=== PATIENT | female | born 1995 | race Caucasian/White ===

== ENCOUNTER 2022-08-27 11:01 | Outpatient (CLI) | payer BC, SELFPAY ==
--- NOTE | ~2022-08-27 | US_ITS ---
US breast LT limited DATE: 08/27/2022 11:28 INDICATION: 1:00 left breast lump felt by referring physician. TECHNIQUE: Real-time imaging at 1:00 COMPARISON: None FINDINGS: No suspicious mass or shadowing, cyst or other significant sonographic finding is identifie d at 1:00. IMPRESSION: Negative Reviewed, dictated and finalized at Location [facility]. Reviewed, dictated and finalized at location A. IMPRESSION: Negative
== END 2022-08-27 11:02 | disposition home or self-care (01) ==
PROVIDERS: PCP Physician Assistant Medical; Visit Provider Obstetrics & Gynecology
DX: N63.21 Unspecified lump in the left breast, upper outer quadrant (principal)
CPT/HCPCS: 76642

== ENCOUNTER 2023-12-16 08:20 | Outpatient (CLI) | payer OTHER, SELFPAY ==
[2023-12-16 13:29] LABS: Hematocrit 40.4 % (37.0-47.0); Hemoglobin 13.1 g/dL (12.0-15.0); Immature Platelet Fraction Pct 17.1 % (0.9-11.2); Mean Corpuscular HGB Conc 32.4 g/dl (32-36); Mean Corpuscular Hemoglobin 29.6 pg (26-34); Mean Corpuscular Volume 91.2 fl (80-100); Mean Platelet Volume 11.8 fl (7.4-10.4); Red Blood Count 4.43 M/mm3 (4.2-5.4); White Blood Count 5.9 K/mm3 (4.5-10.0)
[2023-12-16 14:00] LABS: Band Neutrophils Percent 1 % (0-6); Eosinophils Absolute Manual 0.05 K/mm3 (0.02-0.50); Eosinophils Percent Manual 1 % (0-4); Lymphocytes Absolute Manual 1.23 K/mm3 (1.1-4.5); Lymphocytes Percent Manual 21 % (18-44); Monocytes Absolute Manual 0.11 K/mm3 (0.1-0.90); Monocytes Percent Manual 2 % (3-9); Neutrophils Absolute Manual 4.48 K/mm3 (1.7-7.2); Neutrophils Percent Manual 75 % (46-73); Total Cells Counted 100
[2023-12-16 14:01] LABS: Schistocytes None Seen
[2023-12-16 14:33] LABS: Hepatitis B Surface Antigen Negative (Negative)
[2023-12-16 15:28] LABS: HIV 1/2 Ab P24 Ag 2.03
[2023-12-16 15:30] LABS: HIVc Retest 2 2.09
[2023-12-16 15:34] LABS: HIV 1/2 Ab P24 Ag Result Reactive (Negative)
[2023-12-16 17:20] LABS: Rapid Plasma Reagin Non-Reactive (NonReactive)
[2023-12-18 16:34] LABS: Varicella IgG Antibody 3.86 S/CO
[2023-12-25 16:20] LABS: HIV 1 2 Ag Ab 4th Gen w Rflxs REPEATEDLY REACTIVE (NON-REACTIVE); HIV 1 Ab Chg Test Yes; HIV 1 Antibody NEGATIVE (NEGATIVE); HIV 2 Ab Chg Test Yes; HIV 2 Antibody NEGATIVE (NEGATIVE)
[2023-12-29 20:13] LABS: HIV-1 RNA, Qual Chg Test Yes; HIV-1 RNA, Qual TMA NOT DETECTED
== END 2023-12-16 08:21 | disposition home or self-care (01) ==
LOC: ANHGOSHLAB 08:21
PROVIDERS: PCP Physician Assistant Medical; Visit Provider Obstetrics & Gynecology
DX: N91.2 Amenorrhea, unspecified (principal)
CPT/HCPCS: 36415; 84702; 85025; 85055; 86592; 86644; 86701; 86702; 86703; 86747; 86762; 86787; 86850; 86900; 86901; 87086; 87340; 87389; G0432

== ENCOUNTER 2024-06-16 22:22 | Outpatient (RCR) | payer OTHER, SELFPAY ==
[2024-06-16 23:06] VITALS: BP 112/69; PULSE 89
--- NOTE | 2024-06-16 23:10 | PC.NURSE ---
2257- RN notified MD of patient arrival and patient complaints. RN notified MD of FHT tracing that is reactive with moderate variability and accelerations. RN also notified MD of the absence of contractions. RN notified MD of patient marking movement and that patient is feeling more movement and is reassured. RN notified MD of vital signs as well. MD gave orders to d/c patient with standard precautions and to have the patient follow up in the office.
--- NOTE | 2024-06-16 23:11 | PC.NURSE ---
2302-RN at bedside discussing d/c instructions with patient. Patient agrees with plan of care and is comfortable going home and has no questions at this time.
== END 2024-07-08 17:05 | disposition home or self-care (01) ==
LOC: ANHOBOP 22:22
PROVIDERS: Visit Provider Obstetrics & Gynecology
DX: O36.8190 Decreased fetal movements, unspecified trimester, not applicable or unspecified (principal); Z3A.00 Weeks of gestation of pregnancy not specified
CPT/HCPCS: 59025

== ENCOUNTER 2024-06-18 08:27 | Outpatient (CLI) | payer OTHER, SELFPAY ==
--- OUTSIDE RECORDS SUMMARY | 2024-06-18 08:33 | XMS_ITS | Clinical Summary ---
Author Organization [facility] Address [address] [place] [address] Phone Care Team Providers Care Hearing Aid Dispenser Name Role Phone Unavailable Primary Care Provider Unavailabl e Allergies No known active allergies Encounters Date Type Department Care Team Description 06/16/2024 External Device Data [facility]CTION Provider, Abstract 05/23/2024 External Device Data [facility] Provider, Abstract 05/22/2024 External Device Data [facility] Provider, Abstract 05/19/2024 External Device Data [facility] Provider, Abstract 04/28/2024 External Device Data [facility] Provider, Abstract 04/09/2024 External Device Data [facility] Provider, Abstract 04/08/2024 External Device Data [facility] Provider, Abstract 04/07/2024 External Device Data [facility] Provider, Abstract 03/24/2024 External Device Data [facility] Provider, Abstract from Last 3 Months Immunizations Immunization Administration Dates Next Due (ADACEL/BOOSTRIX)(10 YR UP) TDAP VACCINE, 0.5ML, IM 08/19/2023(Deferred: - pt refused. pt states she will get the shot at her pcp) Social History Tobacco Use Types Packs/Day Years Used Date Smoking Tobacco: Never Assessed Feeling Safe Answer Date Recorded Are you in a relationship wi th someone who hurts you emotionally and/or physically? No 08/19/2023 Comments Unknown Sex and Gender Information Value Date Recorded Sex Assigned at Not on file Legal Sex Female 6:24 PM CDT Gender Identity Not on file Sexual Orientation Not on file Last Filed Vital Signs Vital Sign Reading Time Taken Comments Blood Pressure 139/76 08/19/2023 7:00 PM CDT Pulse 66 08/19/2023 7:00 PM CDT Temperature 37.3 C (99.2 F) 08/19/2023 7:00 PM CDT Respiratory Rate 14 08/19/2023 7:00 PM CDT Oxygen Saturation 100% 08/19/2023 7:00 PM CDT Inhaled Oxygen Concentration - - Weight - - Height - - Body Mass Index - - Plan of Treatment Health Maintenance Due Date Last Done Comments DTAP/TDAP/TD VACCINES (1 - Tdap) 2014 HEPATITIS B VACCINES (1 of 3 - 19+ 3-dose series) 2014 CERVICAL CANCER SCREENING 02/21/2016 HPV/Cotest (21-29) 02/21/2016 PAP SMEAR 02/21/2016 PAP SMEAR 02/21/2016 INFLUENZA VACCINE (#1) 2023 HPV VACCINES Aged Out No longer eligi ble based on patient's age to complete this topic Insurance [employer] [facility] [id number]
--- OUTSIDE RECORDS SUMMARY | 2024-06-18 08:33 | XMS_ITS | Encounter Summary ---
Author Organization [facility] Address [address] [place] [address] Care Team Providers Care Assistant Brand Manager Name Role Phone Unavailable Primary Care Provider Unavailabl e Encounter Details Date Type Department Care Team (Late st Contact Info) Description 06/16/2024 External Device Data [facility] Provider, Abstract NO ADDRESS ON FILE Social History Tobacco Use Types Packs/Day Years [...] on file Sexual Orientation Not on file documented as of this encounter Plan of Treatment Not on file documented as of this encounter Visit Diagnoses Not on filedocumented in this encounter
[2024-06-18 10:36] LABS: INR 0.9; Prothrombin Time 12.9 Seconds (11.1-14.7)
[2024-06-18 10:37] LABS: Partial Thromboplastin Time 25.9 Seconds (22.3-36.8)
[2024-06-18 11:46] LABS: Alanine Aminotransferase 29 U/L (6-35); Albumin Level 3.6 g/dL (3.5-5.1); Alkaline Phosphatase 153 U/L (38-126); Anion Gap 9 mmol/L (4-12); Aspartate Amino Transferase 38 U/L (14-36); Bilirubin,Total 0.4 mg/dL (0.2-1.3); Blood Urea Nitrogen 8 mg/dL (7-17); Calcium 8.7 mg/dL (8.4-10.2); Carbon Dioxide 23 mmol/L (22-30); Chloride 104 mmol/L (98-107); Estimated Glomerular Filt Rate > 60; Glucose 92 mg/dL (65-110); Sodium 136 mmol/L (137-145)
[2024-06-23 16:58] LABS: Chenodeoxycholic Acid 1.4 umol/L (< OR = 3.9); Cholic Acid 2.9 umol/L (< OR = 2.8); Deoxycholic Acid 1.6 umol/L (< OR = 2.3); Total Bile Acids 5.9 umol/L (< OR = 8.3)
== END 2024-06-18 08:28 | disposition home or self-care (01) ==
LOC: ANHGOSHLAB 08:28
PROVIDERS: Visit Provider Obstetrics & Gynecology
DX: L29.9 Pruritus, unspecified (principal)
CPT/HCPCS: 36415; 80053; 82542; 85610; 85730

== ENCOUNTER 2024-06-23 15:54 | Inpatient (IN) | payer OTHER, SELFPAY ==
[2024-06-23] VITALS (12 sets, daily range): BP systolic 116–131; BP diastolic 71–93; PULSE 75–125; TEMP 37; BMI 32.7
--- NOTE | ~2024-06-23 | CT_ITS ---
CTA chest PE abdomen pel Ordering provider: Jayshree Williamson MD History: . elevated d-dimer . Comparison: None. Technique: CT angiogram chest was performed following timed intravenous injection of contrast. Thin s lice axial images and reformatted coronal images were obtained. Three dimensional reformatted images of the chest were also obtained using a [employer] workstation. Also, CT of the abdomen and pelvis was pe rformed with IV contrast. . Automated exposure control and iterative reconstruction technique were e mployed. The dose-length product was 1497.46 mGy-cm. 100 mL Omnipaque 350 was given IV. FINDINGS: CHEST: --PULMONARY ARTERIES: No pulmonary embolus. --VISUALIZED THORACIC INLET: Normal. --MEDIASTINUM: Aorta/coronary arteries: The thoracic aorta is normal. Heart/other: No cardiomegaly. Lymph nodes: No mediastinal or hilar adenopathy. --LUNGS: No pulmonary nodules or masses. No infiltrates or effusions. No pneumothorax. --MUSCULOSKELETAL: Bones: normal spine. Superficial soft tissues: The superficial soft tissues are normal. ABDOMEN/PELVIS: --MUSCULOSKELETAL: Superficial soft tissues: The superficial soft tissues are normal. Bones: Normal spine. --UPPER ABDOMINAL ORGANS: Liver: Normal. Gallbladder: Normal. Spleen: Normal. Stomach/duodenum: Normal. Pancreas: Normal. Adrenals: Normal. Kidneys: Hydronephrotic changes in both kidneys more on the right side with dilated ureters. --PELVIC ORGANS: The bladder is normal. No bladder stones. Uterus: Grossly enlarged. Clinical correlation for recent labour is advised. --BOWEL AND MESENTERY: Colon: No evidence of diverticulitis. No evidence of appendicitis. Small Bowel: Slight rotation in the area of the mesenteric root is noted but no definite ischemia see n. No obstruction. Peritoneum/mesentery: No free air or free fluid. No mesenteric lymphadenopathy. --RETROPERITONEUM: Normal aorta. No retroperitoneal lymphadenopathy. IMPRESSION: CHEST: 1. No evidence of pulmonary embolism. 2. No acute cardiopulmonary pathology. ABDOMEN/PELVIS: 1. Bilateral hydronephrotic changes more on the right side with dilated ureters. 2. Grossly enlarged uterus most likely status post labour. Clinical correlation advised. Reviewed, dictated and finalized at location A. IMPRESSION: CHEST: 1. No evidence of pulmonary embolism. 2. No acute cardiopulmonary pathology. ABDOMEN/PELVIS: 1. Bilateral hydronephrotic changes more on the right side with dilated ureter s. 2. Grossly enlarged uterus most likely status post labour. Clinical correlatio n advised.
--- OUTSIDE RECORDS SUMMARY | 2024-06-23 16:57 | XMS_ITS | Clinical Summary ---
Author Organization [facility] Address [address] [place] [address] Phone Care Team Providers Care Prefitter Doors Name Role Phone Unavailable Primary Care Provider [...] patient's age to complete this topic Insurance [employer] [facility] [id number] Member Subscriber Plan / Payer (Ef fective 2023-Present) Name:LILO STEEL Relation to Subscriber:Spouse Name:PRINCE HONG Date of :1993 (Home) Address: [address] [place] [address] Payer ID:[id number] (NAIC) Type:O Address: [facility] [id number] [place] [id number]
--- NOTE | 2024-06-23 17:15 | LDADM ---
This patient, Lilo Hong, was admitted to Labor/Delivery/Recovery 103 on 06/23/24 at 15:54. Plans for labor, pain management and were discussed with patient. Patient/family oriented to hospital policies and general routines including ID bracelet, bed and alarms, visiting hours, pain management, procedures, bathroom and other care routines, personal items, smoking policy, room service/diet and guest tray routines, security routines, and visiting hours. Patient/Family are encouraged to report perceived risks to care and to ask questions if they do not understand what they are told or what they should do. See OBIX for further documentation.
[2024-06-23 17:16] LABS: Basophils Percent Auto 0.2 % (0.2-1.2); Eosinophils Absolute Auto 0.1 K/mm3 (0-0.3); Eosinophils Percent Auto 0.6 % (0-4.4); Hematocrit 38.1 % (37.0-47.0); Hemoglobin 12.2 g/dL (12.0-15.0); Immature Granulocyte Absolute 0.05 K/mm3 (0.00-0.031); Immature Granulocyte Percent A 0.5 % (0-0.5); Lymphocytes Absolute Auto 1.97 K/mm3 (0.9-3.2); Mean Corpuscular Hemoglobin 29.3 pg (26-34); Mean Corpuscular Volume 91.6 fl (80-100); Mean Platelet Volume 11.3 fl (7.4-10.4); Monocytes Absolute Auto 0.7 K/mm3 (0.1-0.6); Monocytes Percent Auto 6.3 % (2.6-8.5); Neutrophils Absolute Auto 7.6 K/mm3 (1.3-6.7); Neutrophils Percent Auto 73.4 % (45.5-73.1); Platelet Count Result 178 k/mm3 (150-375); Red Blood Count 4.16 M/mm3 (4.2-5.4); Red Cell Distribution Width 13.9 % (11.5-14.5); White Blood Count 10.4 K/mm3 (4.5-10.0)
[2024-06-23 17:25] LABS: Alanine Aminotransferase 23 U/L (6-35); Albumin Level 3.8 g/dL (3.5-5.1); Alkaline Phosphatase 142 U/L (38-126); Anion Gap 8 mmol/L (4-12); Aspartate Amino Transferase 24 U/L (14-36); Bilirubin,Total 0.2 mg/dL (0.2-1.3); Blood Urea Nitrogen 9 mg/dL (7-17); Calcium 8.4 mg/dL (8.4-10.2); Carbon Dioxide 22 mmol/L (22-30); Chloride 105 mmol/L (98-107); Estimated Glomerular Filt Rate > 60; Glucose 93 mg/dL (65-110); Potassium 3.7 mmol/L (3.4-5.0); Sodium 135 mmol/L (137-145)
[2024-06-23] MEDS: DINOPROSTONE 10 MG VAG INSERT VAGINAL (17:32)
[2024-06-23 17:53] LABS: Syphilis IgG/IgM Antibody Negative (Negative)
[2024-06-23 19:16] LABS: HIV 1/2 Ab P24 Ag 3.15
[2024-06-23 20:10] LABS: HIV 1/2 Ab P24 Ag Result Reactive (Negative)
--- NOTE | 2024-06-23 20:30 | PC.NURSE ---
Dr. Muñoz from HIV Hotline returned call and notified of HIV status.
--- NOTE | 2024-06-23 20:30 | PC.NURSE ---
Recommendation to stop induction of labor until HIV confirmation results are received per Dr. Muñoz from HIV Hotline.
--- NOTE | 2024-06-23 21:20 | PC.NURSE ---
1899- [facility] Cryptographic Technician, Dr. Beltran, notified. 1919- strategic account director, Chuy Tim, RN, notified. 1924- Dr. Williamson notified. 1932- HIV Hotline called. Message left. 1941- Pharmacy notified. 1943- pipe finishing supervisor called with no answer. 2006- No return call from HIV Hotline. Called again and message left. 2014- Patient Educator notified. 2029- HIV Hotline returned call. Informed of information needed and recommendations given. 2116- Lab called to verify that specimen was received and was being processed to send to [place].
--- NOTE | 2024-06-23 21:55 | PC.NURSE ---
Called to confirm lab orders with lab and they stated that the invoice control clerk was currently picking up the specimen.
[2024-06-24] VITALS (77 sets, daily range): BP systolic 99–209; BP diastolic 58–187; PULSE 72–103; RESP 16; TEMP 36.3–36.8; O2SAT 79–100
--- NOTE | 2024-06-24 07:18 | PM.IMHP ---
H&P: HPI History of Present Illness Date/Time: 06/24/24 07:15 Chief Complaint: IOL Narrative: Lilo is a 29yo @ 40.0wks who presented overnight for induction of labor. She has had regular care. She reports good movement. At the end of her , she did start to develop itching of her palms and soles. AST was mild elevated; bile acids are negative. After cervidil was placed, her rapid HIV returned reactive (again). She has had multiple rapid tests before and during that have been positive; confirmation testing has been negative. YANE protocol was performed; [place] HIV hotline was contacted and informed us we should stop the induction until confirmation testing resulted; therefore her cervidil was removed. She has continued to contract throughout the night. NO Vb or LOF. She is feeling irregular cramping/mild contractions. Her is complicated by: - Low lying placenta -- resolved 03/25/24 - H/o reactive HIV; confirmatory testing NEGATIVE x3 Review of Systems Constitutional: Constitutional: Denies chills, Denies fever(s) and Denies headache(s) Eyes: Eyes: Denies change in vision ENT: Denies headache(s) Cardiovascular: Cardiovascular: Denies chest pain and Denies dyspnea Respiratory: Respiratory: Denies dyspnea Genitourinary: Genitourinary: Denies abnormal vaginal bleeding and Denies vaginal discharge Neurologic: Denies headache(s) Psychiatric: Psychiatric: Denies anxiety and Denies depression [facility] Surgical History Surgical History History of adenoidectomy Hx of tonsillectomy History of breast biopsy Family History Family History Mother Asthma Depression Thyroid disorder Anxiety Sibling Depression Thyroid disorder Anxiety Grandparent Diabetes mellitus Social History Social History Smoking status: Never smoker Second hand tobacco smoke exposure: No Alcohol intake: former Alcohol use details: social Substance use: never Substance use type: does not use Do You Feel Safe in your Home?: Yes Lack of Transportation: No Lack of Food: Never True Current Housing: I Have Housing Concerned About Future Housing: No Difficulty Paying Gas/Electric Bills: No Difficulty Paying for Meds: No Currently Unemployed: No Education: Master's Degree or Higher Difficulty w/ Childcare or Family Care: No Living arrangements: with family Additional living arrangements comments: Spouse Occupation/Education: occupation 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 Gender identity (if verbalized by the patient): Female Sexual Orientation (if Verbalized by the Patient): Straight or Heterosexual Spiritual care concerns: No Agree to blood products: No Meds Home Medications and Allergies Home Medications ?Medication ?Instructions ?Recorded ?Confirmed ?Type BYMOUTH 11/25/23 06/17/24 History aspirin 81 mg tablet,delayed 81 mg PO DAILY 03/17/24 06/23/24 History release (Adult Low Dose Aspirin) ferrous sulfate 325 mg (65 mg 325 mg PO DAILY 04/14/24 06/23/24 History iron) tablet (Feosol) Allergies Allergy/AdvReac Type Severity Reaction Status Date / Time amoxicillin Allergy Mild Hives Verified 06/17/24 16:19 Exam Const: General: cooperative, no acute distress and obese Nutritional Appearance: obese Orientation/consciousness: patient oriented x3 Resp: Effort & Inspection: normal respiratory effort Cardio: Rate: regular rate GI: GI Palp: No abdominal tenderness : Other: FHT's: 130's/ mod nola/ + accels/ no decels - cat 1 TOCO: ctxs q2-4min + irritability Cervix:1/50/-3 Membranes: intact Presentation: cephalic Skin: General skin exam: normal color Neuro: General: patient oriented x3 Extrem: General: normal to inspection Psych: Appearance: grossly normal Affect: normal affect Attitude: cooperative Assessment and Plan Assessment and plan (1) Encounter for elective induction of labor: Code(s): Z34.90 - Encounter for supervision of normal , unspecified, unspecified trimester Status: Acute Plan - Admitted overnight for induction of labor; risks and benefits discussed - s/p cervidil, but removed early due to reactive HIV, confirmation pending - Once confirmation negative, will recheck cervix and likely start low dose pitocin vs cytotec - Continuous monitoring - GBS neg - Anesthesia consult PRN pain
--- NOTE | 2024-06-24 08:20 | PC.NURSE ---
Reported updated non-reactive results to Teagan on the hotline. Teagan will call the clinician. Faxed results to number given by Teagan.
[2024-06-24 08:25] LABS: HIVc Retest 1 2.98; HIVc Retest 2 2.84
--- NOTE | 2024-06-24 08:33 | PC.NURSE ---
Spoke with Dr. Muñoz about results. Recommendation is to continue to wait until RNA result is received to resume induction of labor.
--- NOTE | 2024-06-24 13:57 | PC.NURSE ---
HIV RNA result faxed and called to Teagan at the HIV hotline. Teagan will notify the M.
--- NOTE | 2024-06-24 14:12 | PC.NURSE ---
Teagan with the HIV hotline called back MF recommends we may proceed with induction of labor at this time.
[2024-06-24] MEDS: miSOPROStol 25 MCG TABLET 50 MCG BUCCAL (14:33)
--- NOTE | 2024-06-24 18:23 | PM.OBPNLAB ---
Pain Control Date/time seen: 06/24/24 18:23 Pain control: tolerating well Pelvic Exam Dilation (cm): 1 (.5) Effacement (%): 60 station: -2 Amniotic membrane status: Ruptured (AROM, clear 181) Contractions Monitor mode: External Contraction frequency: 3 Status status: Category l Assessment and Plan Assessment: induction ongoing Plan: continuous present management Comments: will start low dose pitocin augmentation
[2024-06-24] MEDS: LACTATED RINGERS 1,000 ML 125 ML IV CONT ×2 (19:40→22:19)
[2024-06-24] MEDS: OXYTOCIN 30 UNITS/NS 500 ML 30 UNITS/500 ML BAG IV CONT (19:41)
--- NOTE | 2024-06-24 22:21 | P.PNAN_ITS ---
Anes - Eval Pre Procedure Procedure: Labor Epidural Date/Time: 06/24/24 22:21 Surgeon: Clay Preop Diagnosis: Labor Pain Pre Op Diagnosis: IOL Patient Data Age: 29 Gender: F Height: 1.63 m Weight: 86.5 kg Last Vital Signs Temp 36.7 C 06/24/24 20:30 Pulse 98 06/24/24 22:21 Resp 16 06/24/24 10:59 BP 129/87 06/24/24 22:21 Pulse Ox 100 06/24/24 22:20 O2 Del Method Room Air 06/23/24 17:08 Allergies Allergy/AdvReac Type Severity Reaction Status Date / Time amoxicillin Allergy Mild Hives Verified 06/17/24 16:19 Home Medications ?Medication ?Instructions ?Recorded ?Confirmed ?Type BYMOUTH 11/25/23 06/17/24 History aspirin 81 mg tablet,delayed 81 mg PO DAILY 03/17/24 06/23/24 History release (Adult Low Dose Aspirin) ferrous sulfate 325 mg (65 mg 325 mg PO DAILY 04/14/24 06/23/24 History iron) tablet (Feosol) : gestational age (, DANIA 06/24/24) Patient hx anesthesia problems: none Family hx anesthesia problems: none Results Review: All pre-operative results and documents have been reviewed as part of the pre- operative evaluation. [facility] Surgical History Surgical History History of adenoidectomy Hx of tonsillectomy History of breast biopsy Family History Family History Mother Asthma Depression Thyroid disorder Anxiety Sibling Depression Thyroid disorder Anxiety Grandparent Diabetes mellitus Social History Social History Smoking status: Never smoker Second hand tobacco smoke exposure: No Alcohol intake: former Alcohol use details: social Substance use: never Substance use type: does not use Do You Feel Safe in your Home?: Yes Lack of Transportation: No Lack of Food: Never True Current Housing: I Have Housing Concerned About Future Housing: No Difficulty Paying Gas/Electric Bills: No Difficulty Paying for Meds: No Currently Unemployed: No Education: Master's Degree or Higher Difficulty w/ Childcare or Family Care: No Living arrangements: with family Additional living arrangements comments: Spouse 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
[2024-06-25] VITALS (180 sets, daily range): BP systolic 97–172; BP diastolic 44–93; PULSE 52–231; RESP 16–18; TEMP 36.3–37.6; O2SAT 81–100
[2024-06-25] MEDS: LACTATED RINGERS 1,000 ML 125 ML IV CONT (00:26)
--- NOTE | 2024-06-25 07:26 | PM.OBPNLAB ---
Pain Control Date/time seen: 06/25/24 07:26 Pain control: epidural Pelvic Exam Dilation (cm): 5 (.5) Effacement (%): 70 station: -1 Amniotic membrane status: Ruptured (AROM, clear 1817) Contractions Monitor mode: Internal (placed on this exam) Contraction frequency: 2 (-4) Status status: Category ll Comments: good variability; but have occasional late/variability decelerations Assessment and Plan Pitocin rate (mU/min): 10 Assessment: induction ongoing Plan: continuous present management
[2024-06-25] MEDS: miSOPROStol 200 MCG TABLET 800 MCG RECTAL (11:05)
[2024-06-25] MEDS: ceFAZolin 2 GM/D5W 50 ML 2 GM/50 ML BAG IVPB (11:14)
--- NOTE | 2024-06-25 11:28 | P.PCNOB_ITS ---
OB - Vaginal Delivery Note Procedure Delivery date: 06/25/24 Events: Elective Induction of Labor Induction method: Per Misoprostol Protocol and Per Cervidil Protocol (then removed early due to labs (see H&P)) Delivery augmentation: Rupture of Membranes and Pitocin Delivery monitor: External FHT and Internal Uterine Route of delivery: Episiotomy description: None Laceration Description: Perineal - 3rd Degree (partial (capsule, sphincter intact)) Delivery repair: vicryl Specimen: Yes (placenta) Quantitative Blood Loss (ml): 450 Anesthesia type: Epidural (and 10cc of 1% lido w/o epi) Disposition: Floor Complications: No immediate complications [place] Baby Date of : 06/25/24 Time of : 10:57 Gestational Age by Date: 40 (.1) gender: Male Weight (pounds): 9 Weight (ounces): 0 presentation: vertex Placenta delivery description: Expressed Cord Vessel Description: 3 Vessels, Nuchal Cord (x2), Reduced and Delayed Cord Clamping score one minute: 8 score five minutes: 9 Narrative: Lilo was found to have severe variables and was examined and found to be anterior lip. We began pushing and the anterior lip resolved as well as the variables. She pushed with good maternal effort for a little over an hour. She delivered the head over intact perineum. Nuchal cord x2 was noted and was reduced. She easily delivered the infant's shoulders and body without complication. Terminal meconium was noted. The infant was then immediately placed skin to skin. His mouth and nose were bulb suctioned by the pediatric nurse and after stimulation, strong cry was heard. Delayed cord clamping was performed. The umbilical cord was then doubly clamped and cut. A segment of the cord was collected for cord gases. The remaining cord blood was collected for typing. With Pitocin running and gentle downward traction on the cord, the placenta delivered without complications. Brisk bleeding was then noted and bimanual massage revealed uterine atony. With bimanual massage the atony did resolve but Cytotec 800 mcg was placed rectally by the nurse. She was examined and a partial third-degree perineal laceration was identified. The rectal sphincter was intact but the capsule was not. She was noted to be feeling sharp pain on the left side therefore she was anesthetized with 1% lidocaine without epinephrine. The capsule and sphincter were reapproximated using 3 separate 2-0 Vicryl stitches and good reapproximation was noted. The remaining laceration was repaired like a normal second-degree perineal laceration without complication using 2-0 Vicryl. The laceration reapproximated well and no bleeding was noted. Bimanual massage was once again performed when slight increase in bleeding was noted and clots were once again removed. After removal the uterus was found to be firm with minimal bleeding. A rectal exam was performed and good tone of the rectal sphincter was noted. Sponge, lap, instrument, and needle counts were correct at the end of the procedure. Mom and baby were left bonding in a stable condition. She will receive 2 g Ancef due to the partial third-degree perineal laceration.
[2024-06-25] MEDS: METHYLERGONOVINE MALEATE 0.2 MG/ML VIAL IM (11:57)
[2024-06-25] MEDS: OXYTOCIN 30 UNITS/NS 500 ML 30 UNITS/500 ML BAG 125 UNITS IV CONT (12:07)
[2024-06-25] MEDS: IBUPROFEN 600 MG TABLET PO ×2 (12:30→22:18)
[2024-06-25] MEDS: BENZOCAINE 20% AER SPR (*SP) 56 GM CAN 1 SPRAY TOPICAL (12:31)
[2024-06-25] MEDS: WITCH HAZEL 40 PADS 1 PAD TOPICAL (12:31)
[2024-06-25 13:10] LABS: Basophils Percent Auto 0.2 % (0.2-1.2); Hematocrit 35.9 % (37.0-47.0); Hemoglobin 11.7 g/dL (12.0-15.0); Immature Granulocyte Absolute 0.11 K/mm3 (0.00-0.031); Immature Granulocyte Percent A 0.5 % (0-0.5); Immature Platelet Fraction Pct 19.9 % (0.9-11.2); Lymphocytes Absolute Auto 1.08 K/mm3 (0.9-3.2); Lymphocytes Percent Auto 5.1 % (18.3-44.2); Mean Corpuscular HGB Conc 32.6 g/dl (32-36); Mean Corpuscular Hemoglobin 29.3 pg (26-34); Mean Platelet Volume 11.8 fl (7.4-10.4); Monocytes Absolute Auto 1.3 K/mm3 (0.1-0.6); Monocytes Percent Auto 6.2 % (2.6-8.5); Neutrophils Absolute Auto 18.6 K/mm3 (1.3-6.7); Platelet Count Result 45 k/mm3 (150-375); Red Blood Count 3.99 M/mm3 (4.2-5.4); White Blood Count 21.1 K/mm3 (4.5-10.0)
[2024-06-25 13:22] LABS: Prothrombin Time 13.7 Seconds (11.1-14.7)
[2024-06-25 13:24] LABS: Fibrinogen 531 mg/dl (215-510)
[2024-06-25 13:37] LABS: Platelet Clumps Present; Platelet Estimate Decreased (Adequate)
[2024-06-25 13:38] LABS: Schistocytes None Seen
--- NOTE | 2024-06-25 14:36 | OBPPTRN ---
Patient transferred to post room #281 via wheelchair. Support person present. Oriented to unit, room, information board, rooming in, admission packet and security measures. Patient verbalizes understanding.
--- NOTE | 2024-06-25 15:15 | PC.NURSE ---
Breast pump provided due to [maternal intention to pump and bottle feed]. Instructions given on cleaning, care, usage, that there should be no pain, pumping schedule for milk production, collection, and storage of human milk. Patient was assessed for correct placement, flange size, to pump for comfort and nipple stretching/stimulation for adequate milk production every 3 hours (8 times in 24 hours) 1-2 times at night. Mother voiced understanding of the education shared along with mom/baby guide for additional resource information. Reported to the Primary RN.
[2024-06-25] MEDS: DOCUSATE SODIUM 100 MG CAPSULE PO (16:14)
[2024-06-25 16:15] LABS: Immature Platelet Fraction Pct 20.4 % (0.9-11.2); Mean Platelet Volume 11.2 fl (7.4-10.4); Platelet Count Result 70 k/mm3 (150-375)
[2024-06-25 16:25] LABS: Alanine Aminotransferase 21 U/L (6-35); Albumin Level 2.9 g/dL (3.5-5.1); Alkaline Phosphatase 122 U/L (38-126); Anion Gap 6 mmol/L (4-12); Aspartate Amino Transferase 38 U/L (14-36); Bilirubin,Total 0.6 mg/dL (0.2-1.3); Blood Urea Nitrogen 7 mg/dL (7-17); Calcium 8.4 mg/dL (8.4-10.2); Carbon Dioxide 21 mmol/L (22-30); Chloride 107 mmol/L (98-107); Estimated CRCL calculation 142 ml/min; Estimated Glomerular Filt Rate > 60; Glucose 100 mg/dL (65-110); Potassium 3.7 mmol/L (3.4-5.0); Sodium 134 mmol/L (137-145)
[2024-06-25 16:55] LABS: D Dimer 11.88 ug/mL (<0.48)
[2024-06-25] MEDS: ACETAMINOPHEN 325 MG TABLET 650 MG PO (17:17)
--- NOTE | 2024-06-25 17:57 | P.PNOB_ITS ---
OB - PN: Subj Subjective Date/time seen: 06/25/24 17:57 Interval history: Bleeding doing much better (s/p cytotec 800mcg, methergine). She has voided, ambulated, tolerated regular diet. No SOB, CP, dizziness, headache. Does have new upper left flank pain. No leg pain or swelling. OB - PN: Obj Data Labs 06/25/24 16:08 06/25/24 16:08 Labs: Laboratory Results - last 24 hr 06/25/24 06/25/24 12:54 16:08 WBC 21.1 H RBC 3.99 L Hgb 11.7 L Hct 35.9 L MCV 90.0 MCH 29.3 MCHC 32.6 RDW 14.0 Plt Count 45 L D 70 L D MPV 11.8 H 11.2 H Immature Gran % (Auto) 0.5 Neut % (Auto) 88.0 H Lymph % (Auto) 5.1 L Thayer % (Auto) 6.2 Eos % (Auto) 0.0 Baso % (Auto) 0.2 Lymph # (Auto) 1.08 Thayer # (Auto) 1.3 H Eos # (Auto) 0.0 Baso # (Auto) 0.0 Abs Immat Gran (auto) 0.11 H Absolute Neuts (auto) 18.6 H Absolute Nucleated RBC 0.000 Band Neutrophils % Not Reportable Nucleated RBC % 0.0 Platelet Estimate Decreased Clumped Platelets Present % Immature Plt Fraction 19.9 H 20.4 H Schistocytes None seen PT 13.7 INR 1.0 APTT 25.0 Fibrinogen 531 H D-Dimer 17.10 H 11.88 H Sodium 134 L Potassium 3.7 Chloride 107 Carbon Dioxide 21 L Anion Gap 6 BUN 7 Creatinine 0.52 L Estim Creat Clear Calc 142 Estimated GFR > 60 Glucose 100 Calcium 8.4 Total Bilirubin 0.6 AST 38 H ALT 21 Alkaline Phosphatase 122 Total Protein 6.0 L Albumin 2.9 L OB - PN A/P Plan day: 0 Comments: - Repeat labs continue to show thrombocytopenia and significantly elevated D- dimer ( would not cause this amount of elevation) - Only new symptom is left upper flank pain - CTA of C/A/P ordered to rule out clot - hospitalist consulted Time Spent With Patient Time: Total time spent is greater than 50% in coordination of care (as documented) at patient's floor/unit and/or counseling patient: Review of Systems 2 Constitutional: Constitutional: Denies chills, Denies fatigue and Denies fever(s) Cardiovascular: Cardiovascular: Denies chest pain, Denies irregular heart rhythm, Denies leg edema and Denies dyspnea Respiratory: Respiratory: Denies cough and Denies dyspnea Gastrointestinal: Gastrointestinal: Denies abdominal pain, Denies nausea and Denies vomiting Genitourinary: Genitourinary: Denies abnormal vaginal bleeding and Reports flank pain Neurologic: Denies dizziness and Denies headache(s) Exam 2 Const: General: cooperative, healthy appearing, comfortable, no acute distress and obese Resp: Effort & Inspection: normal respiratory effort Auscultation: clear to auscultation bilaterally Cardio: Rate: regular rate GI: Inspection: non-distended GI Palp: No abdominal tenderness A uscultation: normal bowel sounds Skin: General skin exam: normal color Neuro: General: patient oriented x3 Extrem: General: normal to inspection, no pedal edema and no calf tenderness Psych: Appearance: grossly normal Affect: normal affect Attitude: c ooperative
--- NOTE | 2024-06-25 21:46 | PM.IMCN ---
Assessment and Plan Assessment and plan (1) Elevated d-dimer: Code(s): R79.89 - Other specified abnormal findings of blood chemistry Status: Acute (2) Thrombocytopenia: Code(s): D69.6 - Thrombocytopenia, unspecified Status: Acute Plan Acute and principal conditions 1. Post-, day 1 2. Thrombocytopenia 3. Elevated D-dimer. likely 2/2 4. Anemia. Normocytic 5. Bilateral hydronephrosis; R > L. likely 2/2 gravid uterus Rx: A. Monitor platelets, D-dimer B. Reassure patient and family at bedside C. Monitor VS closely; monitor for abnormal bleeding D. Repeat CBC and D-dimer E. Ambulate patient; SCDs F. Monitor Hb with goal >7 G. Monitor renal function HPI Date of Consult Consult date: 06/26/24 Requesting Physician: Jayshree Williamson MD Primary Care Provider: UNKNOWN,DOCTOR Consult Narrative Reason for consult: 1. Abnormal labs; Elevated D-dimer, Thrombocytopenia Narrative: Lilo Hong is a 29 year old female with an insignificant medical history At 40 weeks gestation she was induced underwent spontaneous vaginal delivery; she remains stable with post probable course found to demonstrate elevated levels of D-dimer as well as thrombocytopenia Per EMR the levels of D-dimer reduced and platelets improved a few hours after the 1st concerning results. Patient is said to be having normal lochia with melanoma vaginal/uterine bleed or bleeding from other sites. She denies fevers, cough, hemoptysis, hematuria, hematochezia, or any changes in bladder or bowel movements. The hospitalist service was consulted due to elevated D-dimer levels as well as thrombocytopenia. She does not smoke/chew tobacco/ vape nicotine; drinks alcohol moderately; she does not consume recreational/illicit drugs Work-up findings VS stable The bedside she is alert, oriented, not in painful/respiratory distress WBC 21; HB 11; PLTs 45 >>70 Fibrinogen 521; D-dimer 17 >> 11 Na 134 K 3.7, Cl 107, CO2 21, A/G 6, BUN 7, CR 0.52 AST 38, ALT 21, ALP 1-2, T-bilirubin 0.6 CTA chest, abdomen, Pelvis: CHEST: 1. No evidence of pulmonary embolism. 2. No acute cardiopulmonary pathology. ABDOMEN/PELVIS: 1. Bilateral hydronephrotic changes more on the right side with dilated ureters. 2. Grossly enlarged uterus most likely status post labour. Lilo Hong will be evaluated and managed for thrombocytopenia and elevated D-dimer post- Review of Systems Review of Systems: All systems reviewed & are unremarkable except as noted in HPI and below [facility] Surgical History Surgical History History of adenoidectomy Hx of tonsillectomy History of breast biopsy Family History Family History Mother Asthma Depression Thyroid disorder Anxiety Sibling Depression Thyroid disorder Anxiety Grandparent Diabetes mellitus Social History Social History Smoking status: Never smoker Second hand tobacco smoke exposure: No Alcohol intake: former Alcohol use details: social Substance use: never Substance use type: does not use Do You Feel Safe in your Home?: Yes Lack of Transportation: No Lack of Food: Never True Current Housing: I Have Housing Concerned About Future Housing: No Difficulty Paying Gas/Electric Bills: No Difficulty Paying for Meds: No Currently Unemployed: No Education: Master's Degree or Higher Difficulty w/ Childcare or Family Care: No Living arrangements: with family Additional living arrangements comments: Spouse 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 Gender identity (if verbalized by the patient): Female Sexual Orientation (if Verbalized by the Patient): Straight or Heterosexual Spiritual care concerns: No Agree to blood products: No Meds Home Medications and Allergies Home Medications ?Medication ?Instructions ?Recorded ?Confirmed ?Type BYMOUTH 11/25/23 06/17/24 History aspirin 81 mg tablet,delayed 81 mg PO DAILY 03/17/24 06/23/24 History release (Adult Low Dose Aspirin) ferrous sulfate 325 mg (65 mg 325 mg PO DAILY 04/14/24 06/23/24 History iron) tablet (Feosol) Allergies Allergy/AdvReac Type Severity Reaction Status Date / Time amoxicillin Allergy Mild Hives Verified 06/17/24 16:19 Vital Signs Vital Signs - 24 hr 06/24/24 22:00 06/24/24 22:15 06/24/24 22:20 Temperature Pulse Rate 92 92 Respiratory Rate Blood Pressure 127/87 121/88 Pulse Oximetry 100 Oxygen Delivery 06/24/24 22:21 06/24/24 22:23 06/24/24 22:25 Temperature Pulse Rate 98 96 98 Respiratory Rate Blood Pressure 129/87 135/77 145/83 H Pulse Oximetry 100 Oxygen Delivery 06/24/24 22:27 06/24/24 22:30 06/24/24 22:33 Temperature 97.5 F L Pulse Rate 98 92 99 Respiratory Rate Blood Pressure 140/90 140/81 139/82 Pulse Oximetry 100 Oxygen Delivery 06/24/24 22:35 06/24/24 22:37 06/24/24 22:40 Temperature Pulse Rate 93 97 92 Respiratory Rate Blood Pressure 126/82 125/75 126/91 H Pulse Oximetry 100 100 Oxygen Delivery 06/24/24 22:42 06/24/24 22:45 06/24/24 22:47 Temperature Pulse Rate 102 H 90 96 Respiratory Rate Blood Pressure 133/71 125/69 122/80 Pulse Oximetry 99 Oxygen Delivery 06/24/24 22:50 06/24/24 22:54 06/24/24 22:55 Temperature Pulse Rate 97 94 95 Respiratory Rate Blood Pressure 117/64 111/58 L 104/63 Pulse Oximetry 99 98 Oxygen Delivery 06/24/24 22:57 06/24/24 23:00 06/24/24 23:02 Temperature Pulse Rate 77 88 101 H Respiratory Rate Blood Pressure 117/84 115/71 112/61 Pulse Oximetry 97 Oxygen Delivery 06/24/24 23:05 06/24/24 23:08 06/24/24 23:10 Temperature Pulse Rate 88 92 89 Respiratory Rate Blood Pressure 108/65 108/70 109/63 Pulse Oximetry 98 100 Oxygen Delivery 06/24/24 23:14 06/24/24 23:15 06/24/24 23:17 Temperature Pulse Rate 89 89 92 Respiratory Rate Blood Pressure 99/58 L 106/63 109/67 Pulse Oximetry 99 Oxygen Delivery 06/24/24 23:20 06/24/24 23:22 06/24/24 23:25 Temperature Pulse Rate 89 86 80 Respiratory Rate Blood Pressure 112/64 109/66 99/77 L Pulse Oximetry 99 99 Oxygen Delivery 06/24/24 23:28 06/24/24 23:30 06/24/24 23:31 Temperature Pulse Rate 94 88 Respiratory Rate Blood Pressure 102/68 209/187 H Pulse Oximetry 100 Oxygen Delivery 06/24/24 23:34 06/24/24 23:35 06/24/24 23:35 Temperature Pulse Rate Respiratory Rate Blood Pressure Pulse Oximetry 80 L 79 L 80 L Oxygen Delivery 06/24/24 23:35 06/24/24 23:35 06/24/24 23:40 Temperature Pulse Rate 94 Respiratory Rate Blood Pressure 110/61 Pulse Oximetry 100 Oxygen Delivery 06/24/24 23:45 06/24/24 23:50 06/24/24 23:55 Temperature Pulse Rate 89 Respiratory Rate Blood Pressure 105/79 Pulse Oximetry 98 99 97 Oxygen Delivery 06/25/24 00:00 06/25/24 00:05 06/25/24 00:10 Temperature Pulse Rate 84 Respiratory Rate Blood Pressure 117/81 Pulse Oximetry 97 98 98 Oxygen Delivery 06/25/24 00:15 06/25/24 00:16 06/25/24 00:20 Temperature Pulse Rate 90 Respiratory Rate Blood Pressure 120/59 L Pulse Oximetry 97 97 Oxygen Delivery 06/25/24 00:25 06/25/24 00:30 06/25/24 00:35 Temperature 97.5 F L Pulse Rate 80 Respiratory Rate Blood Pressure 104/58 L Pulse Oximetry 100 97 98 Oxygen Delivery 06/25/24 00:40 06/25/24 00:45 06/25/24 00:50 Temperature Pulse Rate 77 Respiratory Rate Blood Pressure 105/61 Pulse Oximetry 97 97 98 Oxygen Delivery 06/25/24 00:55 06/25/24 01:00 06/25/24 01:05 Temperature Pulse Rate 81 Respiratory Rate Blood Pressure 115/64 Pulse Oximetry 95 98 98 Oxygen Delivery 06/25/24 01:10 06/25/24 01:15 06/25/24 01:20 Temperature Pulse Rate 81 Respiratory Rate Blood Pressure 105/62 Pulse Oximetry 97 97 99 Oxygen Delivery 06/25/24 01:25 06/25/24 01:30 06/25/24 01:35 Temperature Pulse Rate 82 Respiratory Rate Blood Pressure 114/68 Pulse Oximetry 98 96 100 Oxygen Delivery 06/25/24 01:40 06/25/24 01:45 06/25/24 01:50 Temperature Pulse Rate 90 Respiratory Rate Blood Pressure 116/71 Pulse Oximetry 100 100 100 Oxygen Delivery 06/25/24 01:55 06/25/24 02:00 06/25/24 02:05 Temperature Pulse Rate 77 Respiratory Rate Blood Pressure 114/73 Pulse Oximetry 98 98 98 Oxygen Delivery 06/25/24 02:10 06/25/24 02:15 06/25/24 02:20 Temperature Pulse Rate 78 Respiratory Rate Blood Pressure 114/70 Pulse Oximetry 97 98 98 Oxygen Delivery 06/25/24 02:25 06/25/24 02:30 06/25/24 02:35 Temperature Pulse Rate 86 Respiratory Rate Blood Pressure 124/78 Pulse Oximetry 99 98 100 Oxygen Delivery 06/25/24 02:40 06/25/24 02:45 06/25/24 02:50 Temperature Pulse Rate 82 Respiratory Rate Blood Pressure 111/68 Pulse Oximetry 98 97 98 Oxygen Delivery 06/25/24 02:55 06/25/24 03:00 06/25/24 03:05 Temperature 97.5 F L Pulse Rate 85 Respiratory Rate Blood Pressure 111/67 Pulse Oximetry 98 98 100 Oxygen Delivery 06/25/24 03:10 06/25/24 03:15 06/25/24 03:20 Temperature Pulse Rate 94 Respiratory Rate Blood Pressure 122/60 Pulse Oximetry 99 99 98 Oxygen Delivery 06/25/24 03:25 06/25/24 03:30 06/25/24 03:35 Temperature Pulse Rate 92 Respiratory Rate Blood Pressure 110/62 Pulse Oximetry 99 97 98 Oxygen Delivery 06/25/24 03:40 06/25/24 03:45 06/25/24 03:50 Temperature Pulse Rate 95 Respiratory Rate Blood Pressure 105/63 Pulse Oximetry 98 99 98 Oxygen Delivery 06/25/24 03:55 06/25/24 04:00 06/25/24 04:01 Temperature Pulse Rate 124 H Respiratory Rate Blood Pressure 97/44 L Pulse Oximetry 98 99 Oxygen Delivery 06/25/24 04:01 06/25/24 04:05 06/25/24 04:09 Temperature Pulse Rate 101 H Respiratory Rate Blood Pressure 108/91 H 111/93 H Pulse Oximetry 100 Oxygen Delivery 06/25/24 04:10 06/25/24 04:15 06/25/24 04:20 Temperature Pulse Rate 93 Respiratory Rate Blood Pressure 114/64 Pulse Oximetry 100 100 97 Oxygen Delivery 06/25/24 04:25 06/25/24 04:30 06/25/24 04:35 Temperature 98.5 F Pulse Rate 84 Respiratory Rate Blood Pressure 113/58 L Pulse Oximetry 99 97 98 Oxygen Delivery 06/25/24 04:40 06/25/24 04:45 06/25/24 04:50 Temperature Pulse Rate 112 H Respiratory Rate Blood Pressure 118/78 Pulse Oximetry 100 99 99 Oxygen Delivery 06/25/24 04:55 06/25/24 05:00 06/25/24 05:05 Temperature Pulse Rate 91 Respiratory Rate Blood Pressure 124/76 Pulse Oximetry 97 99 99 Oxygen Delivery 06/25/24 05:10 06/25/24 05:15 06/25/24 05:16 Temperature Pulse Rate 98 Respiratory Rate Blood Pressure 112/78 Pulse Oximetry 96 96 92 Oxygen Delivery 06/25/24 05:21 06/25/24 05:26 06/25/24 05:30 Temperature Pulse Rate 231 H Respiratory Rate Blood Pressure 123/83 Pulse Oximetry 97 99 Oxygen Delivery 06/25/24 05:31 06/25/24 05:36 06/25/24 05:41 Temperature Pulse Rate Respiratory Rate Blood Pressure Pulse Oximetry 98 97 97 Oxygen Delivery 06/25/24 05:45 06/25/24 05:46 06/25/24 05:51 Temperature Pulse Rate 90 Respiratory Rate Blood Pressure 121/61 Pulse Oximetry 98 100 Oxygen Delivery 06/25/24 05:56 06/25/24 06:01 06/25/24 06:06 Temperature Pulse Rate 97 Respiratory Rate Blood Pressure 109/66 Pulse Oximetry 99 98 Oxygen Delivery 06/25/24 06:08 06/25/24 06:12 06/25/24 06:15 Temperature Pulse Rate 96 Respiratory Rate Blood Pressure 113/72 Pulse Oximetry 98 99 Oxygen Delivery 06/25/24 06:17 06/25/24 06:22 06/25/24 06:27 Temperature Pulse Rate Respiratory Rate Blood Pressure Pulse Oximetry 99 100 98 Oxygen Delivery 06/25/24 06:30 06/25/24 06:32 06/25/24 06:37 Temperature 97.4 F L Pulse Rate 98 Respiratory Rate Blood Pressure 110/64 Pulse Oximetry 99 99 Oxygen Delivery 06/25/24 06:42 06/25/24 06:45 06/25/24 06:47 Temperature Pulse Rate 83 Respiratory Rate Blood Pressure 112/74 Pulse Oximetry 100 98 Oxygen Delivery 06/25/24 06:52 06/25/24 06:57 06/25/24 07:00 Temperature Pulse Rate 82 Respiratory Rate Blood Pressure 107/77 Pulse Oximetry 100 100 Oxygen Delivery 06/25/24 07:02 06/25/24 07:07 06/25/24 07:12 Temperature Pulse Rate Respiratory Rate Blood Pressure Pulse Oximetry 99 100 95 Oxygen Delivery 06/25/24 07:15 06/25/24 07:17 06/25/24 07:22 Temperature Pulse Rate 98 Respiratory Rate Blood Pressure 113/74 Pulse Oximetry 98 100 Oxygen Delivery 06/25/24 07:27 06/25/24 07:30 06/25/24 07:32 Temperature Pulse Rate 80 Respiratory Rate Blood Pressure 110/69 Pulse Oximetry 100 100 Oxygen Delivery 06/25/24 07:37 06/25/24 07:42 06/25/24 07:47 Temperature Pulse Rate Respiratory Rate Blood Pressure Pulse Oximetry 99 99 100 Oxygen Delivery 06/25/24 07:52 06/25/24 07:57 06/25/24 08:00 Temperature Pulse Rate 88 Respiratory Rate Blood Pressure 98/55 L Pulse Oximetry 100 98 Oxygen Delivery 06/25/24 08:02 06/25/24 08:07 06/25/24 08:12 Temperature Pulse Rate Respiratory Rate Blood Pressure Pulse Oximetry 98 98 99 Oxygen Delivery 06/25/24 08:15 06/25/24 08:17 06/25/24 08:21 Temperature Pulse Rate 99 Respiratory Rate Blood Pressure 116/68 Pulse Oximetry 100 100 Oxygen Delivery 06/25/24 08:26 06/25/24 08:30 06/25/24 08:31 Temperature 98.2 F Pulse Rate 87 Respiratory Rate Blood Pressure 111/61 Pulse Oximetry 99 97 Oxygen Delivery 06/25/24 08:36 06/25/24 08:41 06/25/24 08:45 Temperature Pulse Rate 101 H Respiratory Rate Blood Pressure 106/62 Pulse Oximetry 99 100 Oxygen Delivery 06/25/24 08:46 06/25/24 08:51 06/25/24 08:56 Temperature Pulse Rate Respiratory Rate Blood Pressure Pulse Oximetry 94 98 100 Oxygen Delivery 06/25/24 09:00 06/25/24 09:01 06/25/24 09:06 Temperature Pulse Rate 96 Respiratory Rate Blood Pressure 123/84 Pulse Oximetry 100 100 Oxygen Delivery 06/25/24 09:11 06/25/24 09:15 06/25/24 09:16 Temperature Pulse Rate 102 H Respiratory Rate Blood Pressure 122/84 Pulse Oximetry 100 100 Oxygen Delivery 06/25/24 09:21 06/25/24 09:26 06/25/24 09:30 Temperature Pulse Rate 119 H Respiratory Rate Blood Pressure 143/66 H Pulse Oximetry 100 96 Oxygen Delivery 06/25/24 09:31 06/25/24 09:36 06/25/24 09:41 Temperature Pulse Rate Respiratory Rate Blood Pressure Pulse Oximetry 100 100 100 Oxygen Delivery 06/25/24 09:45 06/25/24 09:46 06/25/24 09:47 Temperature Pulse Rate 108 H Respiratory Rate Blood Pressure 139/84 Pulse Oximetry 99 100 Oxygen Delivery 06/25/24 09:51 06/25/24 09:55 06/25/24 09:56 Temperature Pulse Rate Respiratory Rate Blood Pressure Pulse Oximetry 100 99 100 Oxygen Delivery 06/25/24 09:57 06/25/24 09:58 06/25/24 10:00 Temperature 97.6 F Pulse Rate Respiratory Rate Blood Pressure Pulse Oximetry 100 98 Oxygen Delivery 06/25/24 10:03 06/25/24 10:06 06/25/24 10:08 Temperature Pulse Rate Respiratory Rate Blood Pressure Pulse Oximetry 100 100 100 Oxygen Delivery 06/25/24 10:19 06/25/24 10:24 06/25/24 10:27 Temperature Pulse Rate Respiratory Rate Blood Pressure Pulse Oximetry 100 100 81 L Oxygen Delivery 06/25/24 10:27 06/25/24 10:31 06/25/24 10:36 Temperature Pulse Rate Respiratory Rate Blood Pressure Pulse Oximetry 88 L 98 100 Oxygen Delivery 06/25/24 10:40 06/25/24 10:42 06/25/24 10:42 Temperature Pulse Rate Respiratory Rate Blood Pressure Pulse Oximetry 100 100 100 Oxygen Delivery 06/25/24 10:45 06/25/24 10:45 06/25/24 10:49 Temperature Pulse Rate Respiratory Rate Blood Pressure Pulse Oximetry 100 100 99 Oxygen Delivery 06/25/24 10:54 06/25/24 10:59 06/25/24 11:00 Temperature 98.9 F Pulse Rate Respiratory Rate Blood Pressure Pulse Oximetry 100 97 Oxygen Delivery 06/25/24 11:04 06/25/24 11:09 06/25/24 11:15 Temperature Pulse Rate 108 H 102 H Respiratory Rate Blood Pressure 172/56 H 121/64 Pulse Oximetry 99 98 Oxygen Delivery 06/25/24 11:30 06/25/24 11:45 06/25/24 12:00 Temperature Pulse Rate 97 110 H 94 Respiratory Rate Blood Pressure 120/76 135/80 120/73 Pulse Oximetry Oxygen Delivery 06/25/24 12:15 06/25/24 12:30 06/25/24 12:45 Temperature Pulse Rate 86 80 75 Respiratory Rate Blood Pressure 120/79 131/77 138/80 Pulse Oximetry Oxygen Delivery 06/25/24 13:00 06/25/24 13:15 06/25/24 13:30 Temperature Pulse Rate 78 83 85 Respiratory Rate Blood Pressure 122/79 128/80 123/80 Pulse Oximetry Oxygen Delivery 06/25/24 13:45 06/25/24 14:00 06/25/24 14:15 Temperature Pulse Rate 94 85 86 Respiratory Rate Blood Pressure 127/62 119/77 125/76 Pulse Oximetry Oxygen Delivery 06/25/24 14:40 06/25/24 15:00 06/25/24 17:10 Temperature 98.6 F 98.5 F Pulse Rate 79 84 Respiratory Rate 16 16 Blood Pressure 136/78 107/71 Pulse Oximetry 97 100 Oxygen Delivery Room Air Exam Const: General: uncomfortable HENMT: Ears: TM's normal bilaterally Face/Nose/Sinus: Normal nares present Eyes: General: appearance normal, both eyes and all related structures Sclera: sclerae normal Pupils: Equal, round and reactive pupils present Neck: Neck: supple Resp: Effort & Inspection: normal respiratory effort Cardio: Rate: regular rate Rhythm: regular rhythm Neuro: General: gait normal Motor exam (neuro): 5/5 motor strength present throughout and Normal motor muscle tone present throughout Extrem: General: normal to inspection Psych: Mental Status: mental status grossly normal Affect: Anxious affect present Results Labs 06/25/24 16:08 06/25/24 16:08 Labs: Short CBC 06/25/24 06/25/24 Range/Units 12:54 16:08 WBC 21.1 H (4.5-10.0) K/mm3 Hgb 11.7 L (12.0-15.0) g/dL Hct 35.9 L (37.0-47.0) % Plt Count 45 L D 70 L D (150-375) k/mm3 BMP 06/25/24 16:08 Sodium 134 L Potassium 3.7 Chloride 107 Carbon Dioxide 21 L BUN 7 Creatinine 0.52 L Glucose 100 Calcium 8.4 Liver Function 06/25/24 Range/Units 16:08 Total Bilirubin 0.6 (0.2-1.3) mg/dL AST 38 H (14-36) U/L ALT 21 (6-35) U/L Alkaline Phosphatase 122 (38-126) U/L Albumin 2.9 L (3.5-5.1) g/dL Quality VTE Prophylaxis VTE prophylaxis: mechanical ordered Hospitalist [facility] Advance Care Plan I have confirmed that the patient's Advanced Care Plan is present, code status is documented, or surrogate decision maker is listed in patient medical record.: Yes Medication Reconciliation I have utilized all available resources to obtain, update and review the patients current medications (includes all prescriptions, OTC, herbals, cannabis, and nutritional supplements).: Yes The patient is not eligible for med reconciliation; the patient is in a emergent medical situation where delaying treatment would jeopardize the patients health.: Yes
[2024-06-26 04:00] VITALS: BP 114/75; PULSE 76; RESP 16; TEMP 37.5; O2SAT 100
[2024-06-26] MEDS: IBUPROFEN 600 MG TABLET PO (04:01)
[2024-06-26] MEDS: ACETAMINOPHEN 325 MG TABLET 650 MG PO (04:01)
[2024-06-26 04:48] LABS: Basophils Percent Auto 0.2 % (0.2-1.2); Eosinophils Percent Auto 0.2 % (0-4.4); Hematocrit 32.6 % (37.0-47.0); Hemoglobin 10.4 g/dL (12.0-15.0); Immature Granulocyte Absolute 0.05 K/mm3 (0.00-0.031); Immature Granulocyte Percent A 0.3 % (0-0.5); Immature Platelet Fraction Pct 17.5 % (0.9-11.2); Lymphocytes Absolute Auto 2.69 K/mm3 (0.9-3.2); Lymphocytes Percent Auto 16.8 % (18.3-44.2); Mean Corpuscular HGB Conc 31.9 g/dl (32-36); Mean Corpuscular Hemoglobin 29.4 pg (26-34); Mean Corpuscular Volume 92.1 fl (80-100); Mean Platelet Volume 11.9 fl (7.4-10.4); Monocytes Percent Auto 6.4 % (2.6-8.5); Neutrophils Absolute Auto 12.2 K/mm3 (1.3-6.7); Neutrophils Percent Auto 76.1 % (45.5-73.1); Platelet Count Result 64 k/mm3 (150-375); Red Blood Count 3.54 M/mm3 (4.2-5.4); Red Cell Distribution Width 14.3 % (11.5-14.5)
[2024-06-26 04:54] LABS: Alanine Aminotransferase 20 U/L (6-35); Albumin Level 2.8 g/dL (3.5-5.1); Alkaline Phosphatase 107 U/L (38-126); Anion Gap 4 mmol/L (4-12); Aspartate Amino Transferase 35 U/L (14-36); Bilirubin,Total 0.5 mg/dL (0.2-1.3); Blood Urea Nitrogen 8 mg/dL (7-17); Calcium 8.2 mg/dL (8.4-10.2); Carbon Dioxide 21 mmol/L (22-30); Chloride 109 mmol/L (98-107); Estimated CRCL calculation 131 ml/min; Estimated Glomerular Filt Rate > 60; Glucose 80 mg/dL (65-110); Sodium 134 mmol/L (137-145)
[2024-06-26 05:15] LABS: D Dimer 2.69 ug/mL (<0.48)
[2024-06-26 05:21] LABS: Band Neutrophils Percent 0 % (0-6); Platelet Estimate Decreased (Adequate)
[2024-06-26 05:22] LABS: Platelet Clumps Present; Schistocytes None Seen
--- NOTE | 2024-06-26 07:20 | P.PNOB_ITS ---
OB - PN: Subj Subjective Date/time seen: 06/26/24 07:20 Interval history: Bleeding doing much better (s/p cytotec 800mcg, methergine). She has voided, ambulated, tolerated regular diet. Narrative: PPD#1 Lilo reports doing well today. 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 Her pain is controlled. She is tolerating regular diet, voiding, passing gas, and ambulating without issues. She is pumping. No SOB, CP, dizziness, headache. Does have new upper left flank pain. No leg pain or swelling. CTA was neg for any clot; seen by hospitalist She would like her son circumcised. OB - PN: Obj Data Labs 06/26/24 04:33 06/26/24 04:33 Labs: Laboratory Results - last 24 hr 06/25/24 06/25/24 06/26/24 12:54 16:08 04:33 WBC 21.1 H 16.0 H RBC 3.99 L 3.54 L Hgb 11.7 L 10.4 L Hct 35.9 L 32.6 L MCV 90.0 92.1 MCH 29.3 29.4 MCHC 32.6 31.9 L RDW 14.0 14.3 Plt Count 45 L D 70 L D 64 L MPV 11.8 H 11.2 H 11.9 H Immature Gran % (Auto) 0.5 0.3 Neut % (Auto) 88.0 H 76.1 H Lymph % (Auto) 5.1 L 16.8 L [place] % (Auto) 6.2 6.4 Eos % (Auto) 0.0 0.2 Baso % (Auto) 0.2 0.2 Lymph # (Auto) 1.08 2.69 [place] # (Auto) 1.3 H 1.0 H Eos # (Auto) 0.0 0.0 Baso # (Auto) 0.0 0.0 Abs Immat Gran (auto) 0.11 H 0.05 H Absolute Neuts (auto) 18.6 H 12.2 H Absolute Nucleated RBC 0.000 0.000 Band Neutrophils % Not Reportable 0 Nucleated RBC % 0.0 0.0 Platelet Estimate Decreased Decreased Clumped Platelets Present Present % Immature Plt Fraction 19.9 H 20.4 H 17.5 H Schistocytes None seen None seen PT 13.7 INR 1.0 APTT 25.0 Fibrinogen 531 H D-Dimer 17.10 H 11.88 H 2.69 H Sodium 134 L 134 L Potassium 3.7 4.0 Chloride 107 109 H Carbon Dioxide 21 L 21 L Anion Gap 6 4 BUN 7 8 Creatinine 0.52 L 0.57 L Estim Creat Clear Calc 142 131 Estimated GFR > 60 > 60 Glucose 100 80 Calcium 8.4 8.2 L Total Bilirubin 0.6 0.5 AST 38 H 35 ALT 21 20 Alkaline Phosphatase 122 107 Total Protein 6.0 L 5.0 L Albumin 2.9 L 2.8 L Imaging Radiologist's impression: Impressions Chest/Abdomen/Pelvis CTA 06/25/24 19:07 IMPRESSION: CHEST: 1. No evidence of pulmonary embolism. 2. No acute cardiopulmonary pathology. ABDOMEN/PELVIS: 1. Bilateral hydronephrotic changes more on the right side with dilated ureters. 2. Grossly enlarged uterus most likely status post labour. Clinical correlation advised. OB - PN A/P Assessment and Plan (1) Normal vaginal delivery of first : Code(s): O80 - Encounter for full-term uncomplicated delivery Status: Acute (2) Thrombocytopenia: Code(s): D69.6 - Thrombocytopenia, unspecified Status: Acute (3) Elevated d-dimer: Code(s): R79.89 - Other specified abnormal findings of blood chemistry Status: Acute (4) Third degree perineal laceration during delivery with less than 50% tear of external anal sphincter: Code(s): O70.21 - Third degree perineal laceration during delivery, IIIa Status: Acute Plan day: 1 Plan: routine care Comments: - PO pain meds; hold ibuprofen, norco PRN severe pain - Regular diet - Continue pumping q2-4hr - Ambulation and hydration encouraged, SCDs - Trending plts & d dimer; CTA negative for clot Time Spent With Patient Time: Total time spent is greater than 50% in coordination of care (as documented) at patient's floor/unit and/or counseling patient: Review of Systems 2 Constitutional: Constitutional: Denies chills, Denies fever(s) and Denies headache(s) Eyes: Eyes: Denies change in vision ENT: Denies dizziness and Denies headache(s) Cardiovascular: Cardiovascular: Denies chest pain, Denies palpitations and Denies dyspnea Respiratory: Respiratory: Denies cough and Denies dyspnea Gastrointestinal: Gastrointestinal: Denies nausea and Denies vomiting Neurologic: Denies dizziness and Denies headache(s) Endocrine: Endocrine: Denies palpitations Exam 2 Const: General: cooperative, comfortable, no acute distress and obese N utritional Appearance: obese Orientation/consciousness: patient oriented x3 Resp: Effort & Inspection: normal respiratory effort Auscultation: clear to auscultation bilaterally Cardio: Rate: regular rate GI: Inspection: non-distended GI Palp: No abdominal tenderness and Yes Soft to palpation Auscultation: normal bowel sounds : Other: fundus firm Back/Spine/Pelvis: Back: no CVA tenderness, No erythema and No ecchymosis Skin: General skin exam: normal color Neuro: General: patient oriented x3 Extrem: General: normal to inspection Psych: Appearance: grossly normal Affect: normal affect Attitude: c ooperative
[2024-06-26 07:42] VITALS: BP 109/69; PULSE 77; RESP 16; TEMP 36.7; O2SAT 98
[2024-06-26] MEDS: DOCUSATE SODIUM 100 MG CAPSULE PO ×2 (08:01→17:13)
[2024-06-26] MEDS: MULTIVIT/MIN/PREN/FOL AC/IRON TABLET 1 TAB PO (08:01)
--- NOTE | 2024-06-26 08:03 | WPDANLDPN2 ---
Anes-Prog Note L&D Date/Time: 06/26/24 08:03 Comfortable throughout: labor and delivery Neuraxial method: epidural Epidural/Spinal procedure site: clean & non-tender Neuro status: Neuro function grossly intact. a thorough exam performed. all neuro was intact and leg function was normal. patient stated no parasthesias were present. evaluated back and back had no bruising. back was soft and normal temp to touch with no pain to patient upon palpating. Cardiovascular status: normal (patient platelets are low post delivery. monitoring platelets closely and patient closely.) Respiratory status: normal Airway patency: baseline Mental status: baseline Post-Op hydration status: normal Vital Signs: Last Vital Signs Temp 36.7 C 06/26/24 07:42 Pulse 77 06/26/24 07:42 Resp 16 06/26/24 07:42 BP 109/69 06/26/24 07:42 Pulse Ox 98 06/26/24 07:42 O2 Del Method Room Air 06/26/24 06:45 Pain score (VAS): 3 Post-procedural complaints: none Patient feedback: Patient satisfied with anesthetic care.
[2024-06-26 08:38] LABS: Mean Platelet Volume 10.2 fl (7.4-10.4)
[2024-06-26 08:41] LABS: Platelet Count Result 210 k/mm3 (150-375)
[2024-06-26 11:33] VITALS: BP 129/88; PULSE 100; RESP 18; TEMP 36.9; O2SAT 97
--- NOTE | 2024-06-26 13:15 | PC.NURSE ---
1315 Introductions were made, then consulted with patient to assess needs related to . Discussed with mother her?plans to feed?her infant and the?experience so far. Per mother she just plans on pumping and bottle feeding, she had pumped twice today. RN educated and encouraged mother to use her breast pump at least 8 times in 24 hours, with 1-2 of those times to be at night in order to protect her milk supply. Resources provided for inpatient and outpatient services with the feeding sheet, mom/baby guide and name written on the communication board. Mother voiced understanding of information and will call if there is a request for assistance. Reported to the Primary RN.
[2024-06-26 16:00] VITALS: BP 108/75; PULSE 72; RESP 16; TEMP 37.1; O2SAT 100
[2024-06-26 18:49] VITALS: BP 114/74; PULSE 91; RESP 18; TEMP 37.1; O2SAT 100
[2024-06-26] MEDS: ACETAMINOPHEN 500 MG TABLET 1000 MG PO (21:30)
[2024-06-26 23:15] VITALS: BP 127/86; PULSE 77; RESP 18; TEMP 36.5; O2SAT 100
[2024-06-27 04:15] VITALS: BP 122/76; PULSE 73; RESP 16; TEMP 36.6; O2SAT 99
[2024-06-27 04:21] LABS: Hemoglobin 9.1 g/dL (12.0-15.0); Immature Platelet Fraction Pct 18.8 % (0.9-11.2); Mean Corpuscular HGB Conc 31.4 g/dl (32-36); Mean Corpuscular Volume 92.4 fl (80-100); Mean Platelet Volume 11.6 fl (7.4-10.4); Red Blood Count 3.14 M/mm3 (4.2-5.4); Red Cell Distribution Width 14.4 % (11.5-14.5); White Blood Count 12.2 K/mm3 (4.5-10.0)
[2024-06-27 04:22] LABS: Platelet Count Result 71 k/mm3 (150-375)
[2024-06-27 04:30] LABS: Alanine Aminotransferase 20 U/L (6-35); Albumin Level 2.7 g/dL (3.5-5.1); Alkaline Phosphatase 94 U/L (38-126); Anion Gap 6 mmol/L (4-12); Aspartate Amino Transferase 31 U/L (14-36); Bilirubin,Total 0.1 mg/dL (0.2-1.3); Blood Urea Nitrogen 12 mg/dL (7-17); Calcium 8.2 mg/dL (8.4-10.2); Carbon Dioxide 23 mmol/L (22-30); Chloride 107 mmol/L (98-107); Estimated CRCL calculation 133 ml/min; Estimated Glomerular Filt Rate > 60; Glucose 87 mg/dL (65-110); Potassium 3.8 mmol/L (3.4-5.0); Sodium 136 mmol/L (137-145)
[2024-06-27 04:32] LABS: D Dimer 1.34 ug/mL (<0.48)
[2024-06-27 07:45] VITALS: BP 96/78; PULSE 96; RESP 18; TEMP 36.4; O2SAT 98
[2024-06-27] MEDS: DOCUSATE SODIUM 100 MG CAPSULE PO (08:33)
[2024-06-27] MEDS: MULTIVIT/MIN/PREN/FOL AC/IRON TABLET 1 TAB PO (08:33)
[2024-06-27] MEDS: POLYSACCHARIDE IRON COMPLEX 150 MG CAPSULE PO (08:33)
[2024-06-27] MEDS: ACETAMINOPHEN 500 MG TABLET 1000 MG PO (08:34)
--- NOTE | 2024-06-27 09:13 | PM.OBDSVD ---
DS: Admitting Diagnosis Discharge Date 06/27/24 Admitting Diagnosis induction of labor DS: Discharge Diagnosis Discharge Diagnosis (1) Normal vaginal delivery of first : Code(s): O80 - Encounter for full-term uncomplicated delivery Status: Acute (2) Third degree perineal laceration during delivery with less than 50% tear of external anal sphincter: Code(s): O70.21 - Third degree perineal laceration during delivery, IIIa Status: Acute (3) PPH ( hemorrhage): Code(s): O72.1 - Other immediate hemorrhage Status: Acute (4) Thrombocytopenia: Code(s): D69.6 - Thrombocytopenia, unspecified Status: Acute (5) Elevated d-dimer: Code(s): R79.89 - Other specified abnormal findings of blood chemistry Status: Acute OB - DS: Summary Hospital Course Hospital Course: Lilo was admitted for elective IOL. She had a h/o rapid HIV positive; confirmation testing negative. Her rapid on admission was positive again; per the protocol, her induction was held until confirmation and viral load were confirmed negative. She ultimately had a complicated by PPH, partial third degree perineal laceration. PPH protocol was initiated and labs were sent. When her labs returned, she was found to have thrombocytopenia and significantly elevated d-dimer. CTA c/a/p was ordered to rule out clot; which was negative for any abnormalities. Labs were trended and returned to normal. Platelets had significant clumping, so a citrated platelet was sent; and returned normal at 210,000 (so not true thrombocytopenia, just due to clumping). [facility] was contacted on 06/26/24 and her information was presented; they agreed that ruling out DVT was important (and had already been performed) and to trend labs. They do recommend we refer to rheumatology and hematology outpatient. Pt otherwise had normal labs/vitals and was meeting all milestones. She was given strict return precautions. OB Procedures : Ultrasound OB Procedures Intrapartum: Spontaneous Vag Delivery OB Procedures: : None and Other (CTA c/a/p negative for DVT) Peripartum Data Infant Delivery Method: Natural Vaginal Laceration Description: Perineal - 3rd Degree (partial (capsule, sphincter intact)) Episiotomy description: None complications: none Celina 1: Gender: Male Disposition of : home Status at Discharge Functional status at discharge: independent ambulation Overall status at discharge: patient is back to baseline Time Spent with Patient Time attestation: Total time spent providing and/or coordinating discharge services: Exam Const: General: cooperative, comfortable, no acute distress and obese Orientation/consciousness: patient oriented x3 Resp: Effort & Inspection: normal respiratory effort Auscultation: clear to auscultation bilaterally Cardio: Rate: regular rate GI: Inspection: non-distended GI Palp: No abdominal tenderness and Yes Soft to palpation Auscultation: normal bowel sounds : Other: fundus firm Skin: General skin exam: normal color Neuro: General: patient oriented x3 Extrem: General: normal to inspection Psych: Appearance: grossly normal Affect: normal affect Attitude: cooperative DS: Data Data Completed and Pending Pending studies at discharge: Pending at discharge 06/25/24 11:02 Surgical [PTH] Routine Labs on day of discharge: Labs from last 24 hours 06/27/24 04:08 WBC 12.2 H RBC 3.14 L Hgb 9.1 L Hct 29.0 L MCV 92.4 MCH 29.0 MCHC 31.4 L RDW 14.4 Plt Count 71 L D MPV 11.6 H % Immature Plt Fraction 18.8 H D-Dimer 1.34 H Sodium 136 L Potassium 3.8 Chloride 107 Carbon Dioxide 23 Anion Gap 6 BUN 12 Creatinine 0.56 L Estim Creat Clear Calc 133 Estimated GFR > 60 Glucose 87 Calcium 8.2 L Total Bilirubin 0.1 L AST 31 ALT 20 Alkaline Phosphatase 94 Total Protein 5.0 L Albumin 2.7 L Discharge Plan Discharge Attending physician on discharge: Jayshree Williamson Consulting providers: Zee London Discharging Clinician: Jayshree Williamson Anticipated Discharge Date/Time: 06/27/24 13:00 Patient Disposition: Home Activity: may shower and pelvic rest Diet: regular Patient Instructions: Vaginal Delivery (DC) Patient Language: German Stand Alone Forms: General Discharge Information Follow-up/Referrals: Jayshree Williamson MD [Physician] - 4 Weeks Discharge Medications: New acetaminophen 500 mg Tablet 1,000 mg PO Q6H PRN (Reason: Mild Pain (1-3) Or Fever) Qty: 60 0RF docusate sodium 100 mg Capsule 100 mg PO BID Qty: 120 0RF ibuprofen 600 mg tablet 600 mg PO Q6H PRN (Reason: pain) Qty: 30 0RF Continued BYMOUTH ferrous sulfate [Feosol] 325 mg (65 mg iron) tablet 325 mg PO DAILY Discontinued aspirin [Adult Low Dose Aspirin] 81 mg tablet,delayed release (DR/EC) 81 mg PO DAILY Date of admission: 06/23/24 15:54 Primary Care Provider: UNKNOWN,DOCTOR Admitting Provider: Jayshree Williamson Attending physician on admission: Jayshree Williamson Condition: Stable
--- NOTE | 2024-06-27 10:04 | PC.NURSE ---
Patient viewed the discharge video Mother & Baby Care, The First Two Weeks . Patient was given the opportunity and encouraged to ask questions. Patient verbalized understanding of information shared and has been given the mother/baby guide for home reference.
[2024-06-29 08:27] VITALS: BP 118/78; PULSE 72; RESP 18; TEMP 37.2; O2SAT 100
== END 2024-06-27 12:24 | disposition home or self-care (01) | DRG 768 ==
LOC: ANHLDR 15:57 → ANHOB2 06-25 14:40
PROVIDERS: Internal Medicine; Admitting Provider Obstetrics & Gynecology; Visit Provider Obstetrics & Gynecology
DX: O44.43 Low lying placenta NOS or without hemorrhage, third trimester (principal); Z37.0 Single live birth; O70.21 Third degree perineal laceration during delivery, IIIa; O72.1 Other immediate postpartum hemorrhage; O99.13 Other diseases of the blood and blood-forming organs and certain disorders involving the immune mechanism complicating the puerperium; N13.30 Unspecified hydronephrosis; Z3A.40 40 weeks gestation of pregnancy; O69.81X0 Labor and delivery complicated by cord around neck, without compression, not applicable or unspecified; O99.892 Other specified diseases and conditions complicating childbirth; D69.6 Thrombocytopenia, unspecified; O99.02 Anemia complicating childbirth; D64.9 Anemia, unspecified; O36.8330 Maternal care for abnormalities of the fetal heart rate or rhythm, third trimester, not applicable or unspecified
CPT/HCPCS: 36415; 71275; 74177; 80053; 85025; 85027; 85049; 85055; 85380; 85384; 85610; 85730; 86593; 86701; 86702; 86703; 86850; 86900; 86901; 87389; 87536; 88307; A9270; G0432; J0690; J2210; J2590; J2795; J7120; Q9967

== ENCOUNTER 2024-09-04 13:34 | Outpatient (CLI) | payer OTHER, SELFPAY ==
[2024-09-04 14:04] LABS: Basophils Percent Auto 0.4 % (0.2-1.2); Eosinophils Absolute Auto 0.1 K/mm3 (0-0.3); Eosinophils Percent Auto 1.9 % (0-4.4); Hematocrit 35.9 % (37.0-47.0); Hemoglobin 11.9 g/dL (12.0-15.0); Lymphocytes Absolute Auto 2.15 K/mm3 (0.9-3.2); Lymphocytes Percent Auto 41.3 % (18.3-44.2); Mean Corpuscular HGB Conc 33.1 g/dl (32-36); Mean Corpuscular Hemoglobin 28.7 pg (26-34); Mean Corpuscular Volume 86.7 fl (80-100); Mean Platelet Volume 9.3 fl (7.4-10.4); Monocytes Absolute Auto 0.3 K/mm3 (0.1-0.6); Neutrophils Absolute Auto 2.6 K/mm3 (1.3-6.7); Neutrophils Percent Auto 50.4 % (45.5-73.1); Platelet Count Result 250 k/mm3 (150-375); Red Blood Count 4.14 M/mm3 (4.2-5.4); Red Cell Distribution Width 13.8 % (11.5-14.5); White Blood Count 5.2 K/mm3 (4.5-10.0)
[2024-09-04 16:26] LABS: Iron 95 ug/dL (37-170)
[2024-09-04 16:27] LABS: Alanine Aminotransferase 19 U/L (6-35); Albumin Level 4.8 g/dL (3.5-5.1); Alkaline Phosphatase 82 U/L (38-126); Anion Gap 11 mmol/L (4-12); Aspartate Amino Transferase 43 U/L (14-36); Bilirubin,Total 0.5 mg/dL (0.2-1.3); Blood Urea Nitrogen 11 mg/dL (7-17); Calcium 9.7 mg/dL (8.4-10.2); Carbon Dioxide 26 mmol/L (22-30); Chloride 104 mmol/L (98-107); Estimated Glomerular Filt Rate > 60; Glucose 96 mg/dL (65-110); Potassium 4.3 mmol/L (3.4-5.0); Sodium 141 mmol/L (137-145); Total Protein 8.1 g/dL (6.3-8.2)
[2024-09-04 16:37] LABS: Percent Iron Saturation 26 % (20-50)
[2024-09-04 16:40] LABS: D Dimer 0.51 ug/mL (<0.48)
[2024-09-04 17:39] LABS: Folic Acid > 20.0 ng/mL (2.76->20)
[2024-09-08 13:09] LABS: Soluble Transferrin Receptor. 1.31 mg/L (0.76-1.76)
[2024-09-08 20:14] LABS: Methylmalonic Acid. 149 nmol/L (55-335)
[2024-09-09 18:43] LABS: Platelet Antibody, Direct IgG NEGATIVE (NEGATIVE)
== END 2024-09-04 13:35 | disposition home or self-care (01) ==
PROVIDERS: Visit Provider Internal Medicine Hematology & Oncology
DX: D64.9 Anemia, unspecified (principal); D69.59 Other secondary thrombocytopenia
CPT/HCPCS: 36415; 80053; 82607; 82728; 82746; 83540; 83550; 83921; 84238; 85025; 85380; 86023

== ENCOUNTER 2024-09-24 09:33 | Outpatient (CLI) | payer OTHER, SELFPAY ==
--- NOTE | ~2024-09-24 | US_ITS ---
Abdominal Sonogram: Real-time sonographic imaging of the abdomen was performed. Clinical History: Secondary thrombocytopenia Findings: The liver appears normal with no evidence of mass lesion or bile duct dilatation. Main por gage vein demonstrates normal direction of flow. The spleen is normal in size without evidence of foca l lesion. The gallbladder is well distended, and appears normal with no evidence of gallstone or wal l thickening. The common bile duct measures 2 mm. The visualized pancreas, aorta, and IVC are unrema rkable. The right kidney measures 10.9 cm in length and the left kidney measures 10.9 cm. There is no hydronephrosis or renal calculus. Impression: Unremarkable abdominal ultrasound. Reviewed, dictated and finalized at location M. Impression: Unremarkable abdominal ultrasound.
--- OUTSIDE RECORDS SUMMARY | 2024-09-24 09:38 | XMS_ITS | Clinical Summary ---
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 Active docusate sodium (STOOL SOFTENER ORAL) Take by mouth every 24 hours. Active ferrous sulfate (FEOSOL) 300 mg (60 mg iron)/5 mL solution Take 300 mg by mouth daily. Active Active Problems No known active problems Encounters Date Type Department Care Team Description 09/11/2024 Orders Only [facility] [place] [address] [place] [id number] John Plummer MD 09/10/2024 Orders Only [facility] [place] [address] [place] [address] John Plummer MD 09/09/2024 Orders Only [facility] [place] [address] [place] [address] John Plummer MD 09/08/2024 External Device Data ST[facility] ABSTRACTION Provider, Abstract 09/08/2024 External Device Data ST[facility] ABSTRACTION Provider, Abstract 09/04/2024 1:00 PM CDT Office Visit [facility] [place] [address] [place] [address] John Plummer MD Other secondary thrombocytopenia (Primary Dx); Chronic anemia; deep vein thrombosis 08/18/2024 External Device Data [place] ABSTRACTION Provider, Abstract 08/06/2024 External Device Data [facility] ABSTRACTION Provider, Abstract 08/05/2024 External Device Data [place] ABSTRACTION Provider, Abstract 08/05/2024 External Device Data [place] ABSTRACTION Provider, Abstract 08/04/2024 External Device Data [place] ABSTRACTION Provider, Abstract 07/21/2024 External Device Data ST[place] ABSTRACTION Provider, Abstract from Last 3 Months Immunizations Immunization Administration Dates Next Due (ADACEL/BOOSTRIX)(10 YR UP) TDAP VACCINE, 0.5ML, IM 08/19/2023(Deferred: - pt refused. pt states she will get the shot at her pcp) Family History Medical History Relation Name Comments No Known Problems Brother No Known Problems Child No Known Problems Father No Known Problems Mother No Known Problems Sister Relation Name Status Comments Brother Alive Child Alive Father Alive Mother Alive Sister Alive Social History Tobacco Use Types Packs/Day Years Used Date Smoking Tobacco: Never Smokeless Tobacco: Never Tobacco Cessation:Counseling Given: Not Answered Alcohol Use Standard Drinks/Week Comments Yes 0 (1 standard drink = 0.6 oz pur e alcohol) occasional Feeling Safe Answer Date Recorded Are you [...] Sign Reading Time Taken Comments Blood Pressure 108/75 09/04/2024 12:48 PM CDT Pulse 69 09/04/2024 12:48 PM CDT Temperature 36.4 C (97.5 F) 09/04/2024 12:48 PM CDT Respiratory Rate 16 09/04/2024 12:48 PM CDT Oxygen Saturation 98% 09/04/2024 12:48 PM CDT Inhaled Oxygen Concentration - - Weight 72.8 kg (160 lb 6.4 oz) 09/04/2024 12:48 PM CDT Height 162.6 cm (5' 4) 09/04/2024 12:48 PM CDT Body Mass Index 27.53 09/04/2024 12:48 PM CDT Plan of Treatment Upcoming Encounters Date Type Department Care Team (Late st Contact Info) Description 10/01/2024 4:30 PM CDT Telephone Check Up [facility] [place] [address] [facility] [address] [place] [address] John Plummer MD [address] [facility] [address] [place] [address] Health Maintenance Due Date Last Done Comments DTAP/TDAP/TD VACCINES (1 - Tdap) 2014 HEPATITIS B VACCINES (1 of 3 - 19+ 3-dose series) 2014 CERVICAL CANCER SCREENING 02/21/2016 HPV/Cotest (21-29) 02/21/2016 PAP SMEAR 02/21/2016 INFLUENZA VACCINE (#1) 2024 HPV VACCINES Aged Out No longer eligi ble based on patient's age to complete this topic Procedures Procedure Name Priority Date/Time Associated Diagnosis Comments CHG PLATELET AB INDIRECT Routine 025 4:51 PM CDT CBC WITH DIFFERENTIAL Routine 09/04/2024 2:18 PM CDT TRANSFERRIN RECEPTOR TFR SOLUBLE Routine 09/04/2024 11:54 AM CDT CBC WITH DIFFERENTIAL Routine 09/04/2024 10:40 AM CDT from Last 3 Months Results * CHG PLATELET AB INDIRECT (09/04/2024 4:51 PM CDT) John Plummer MD CHG - LABORATORY Final Result * CBC WITH DIFFERENTIAL (09/04/2024 2:18 PM CDT) Only the most recent of2 resultswithin the time period is included. Blood us John Plummer MD HEMATOLOGY ORDERABLES Final Res ult * TRANSFERRIN RECEPTOR TFR SOLUBLE (09/04/2024 11:54 AM CDT) Blood John Plummer MD CHEMISTRY ORDERABLES Final Resu lt from Last 3 Months Insurance Member Subscriber Plan / Payer (Ef fective 2023-Present) Name:LILO HONG Relation to Subscriber:Spouse Name:PRINCE HONG Date of :1993 (Home) Address: [address] [place] [address] Payer ID:[id number] (NAIC) Type:[employer]O Address: [place] [address] Member Subscriber Plan / Payer (Ef fective 2023-Present) Name:LILO HONG Relation to Subscriber:Spouse Name:PRINCE HONG Date of :1993 (Home) Address: [address] [place] [address] Payer ID:[id number] (NAIC) Type:[employer]O Address: [place] [address]
== END 2024-09-24 09:34 | disposition home or self-care (01) ==
PROVIDERS: PCP Nurse Practitioner Family; Visit Provider Internal Medicine Hematology & Oncology
DX: D69.59 Other secondary thrombocytopenia (principal)
CPT/HCPCS: 76700